=== PATIENT | female | born 2000 | race Caucasian/White ===

== ENCOUNTER 2020-10-10 18:40 | Emergency (ER) | payer BC ==
[~2020-10-10] VITALS: Ht 154.9 cm; Wt 94.3 kg
[2020-10-10 21:19] LABS: ABSOLUTE NEUTROPHILS 15.3 thou/uL (1.4-8.2); BASOPHILS 0.3 % (0.0-2.0); EOSINOPHILS 2.2 % (0.0-3.0); HEMATOCRIT 38.5 % (37.0-47.0); LYMPHOCYTES 11.6 % (24.0-44.0); MCH 29.5 pg (26.0-34.0); MCHC 33.9 g/dL (28.0-37.0); MCV 87.1 fL (80.0-100.0); MONOCYTES 6.7 % (1.0-8.0); PLATELET COUNT 447 thou/uL (150-400); POLYS 79.2 % (36.0-66.0); RBC 4.42 mil/uL (4.20-5.00); WBC 19.3 thou/uL (4.0-11.0)
[2020-10-10 22:27] LABS: CALCIUM 8.6 mg/dL (8.5-10.1); CREATININE 0.9 mg/dL (0.6-1.0); POTASSIUM 3.8 mmol/L (3.5-5.1)
[2020-10-11] MEDS ORDERED: AMOXICILLIN500 M1 PO (00:58)
[2020-10-11 01:40] VITALS: BP 102/55
--- NOTE | 2020-10-11 07:19 | EKG ---
[address] [address] [place] [address] ELECTROCARDIOGRAM REPORT Name: GIFTY CRUZ [id number] Admission: 10/10/20 Attend Phys: Discharge: 10/11/20 Date of : [birth year] Report #: [id number] [facility] ED Test Date: 2020-10-10 Test Time: 19:44:07 Pat Name: GIFTY CRUZ Department: Room: Gender: F Boiler Tester: MARIA D : 2000 Requested By: Rosalio Varela Order Number: [id number] MD: Joel Almaguer Measurements Intervals Carver Rate: 136 P: 34 ND: 132 QRS: 79 QRSD: 86 T: -15 QT: 289 QTc: 435 Interpretive Statements Sinus tachycardia Low voltage, precordial leads Borderline T abnormalities, diffuse leads No previous ECG available for comparison Electronically Signed On 10-11-2020 7:19:02 CDT by Joel Almaguer [email or web address] <ELECTRONICALLY SIGNED> By: Joel Almaguer MD, [facility] 10/11/20 [id number] 43 Joel Almaguer MD, FACC /EPI
== END 2020-10-11 01:50 | disposition home or self-care (01) ==
LOC: ER 18:40
PROVIDERS: Nurse Practitioner; Student in an Organized Health Care Education/Training Program
DX: J02.0 Streptococcal pharyngitis (principal); Z20.822 Contact with and (suspected) exposure to COVID-19

== ENCOUNTER 2020-12-13 14:57 | Emergency (ER) | payer OTHER ==
[~2020-12-13] VITALS: Ht 154.9 cm; Wt 94.3 kg
[~2020-12-13 14:57] MED LIST: AMOXICILLIN500 M1 PO
[2020-12-13 15:59] LABS: ABSOLUTE NEUTROPHILS 6.4 thou/uL (1.4-8.2); BASOPHILS 0.9 % (0.0-2.0); EOSINOPHILS 3.7 % (0.0-3.0); HEMATOCRIT 41.7 % (37.0-47.0); HEMOGLOBIN 13.9 gm/dL (12.0-15.0); LYMPHOCYTES 25.7 % (24.0-44.0); MCH 29.6 pg (26.0-34.0); MCHC 33.4 g/dL (28.0-37.0); MCV 88.6 fL (80.0-100.0); MONOCYTES 4.4 % (1.0-8.0); PLATELET COUNT 504 thou/uL (150-400); POLYS 65.3 % (36.0-66.0); RDW 13.6 % (10.5-14.5); WBC 9.8 thou/uL (4.0-11.0)
[2020-12-13] MEDS ORDERED: ZPAK PO (16:11)
[2020-12-13 16:30] VITALS: BP 131/83
== END 2020-12-13 16:37 | disposition home or self-care (01) ==
LOC: ER 14:57
PROVIDERS: Emergency Medicine
DX: I88.9 Nonspecific lymphadenitis, unspecified (principal); J02.9 Acute pharyngitis, unspecified; Z79.899 Other long term (current) drug therapy